=== PATIENT | male | born 1955 | race Caucasian/White ===

== ENCOUNTER 2018-08-25 23:57 | Emergency (ER) | payer MEDICARE ==
[2018-08-26] MEDS: HYDROCODONE/APAP (5/325) TAB PO (01:20)
== END 2018-08-26 03:19 | disposition home or self-care (01) ==
LOC: FTE 23:57
DX: S80.211A Abrasion, right knee, initial encounter (principal); S80.212A Abrasion, left knee, initial encounter; I10 Essential (primary) hypertension; J45.909 Unspecified asthma, uncomplicated; W18.30XA Fall on same level, unspecified, initial encounter; Y92.9 Unspecified place or not applicable; Z21 Asymptomatic human immunodeficiency virus [HIV] infection status; Z79.82 Long term (current) use of aspirin
CPT/HCPCS: 29505; 73562; 99284-25

== ENCOUNTER → 2018-10-24 | Outpatient (CLI) | payer MEDICARE | END | disposition home or self-care (01) | LOC: HKI 11:27 | DX: M25.562 Pain in left knee (principal); M25.561 Pain in right knee; E11.8 Type 2 diabetes mellitus with unspecified complications; N40.0 Benign prostatic hyperplasia without lower urinary tract symptoms; Z88.2 Allergy status to sulfonamides | CPT/HCPCS: G0463 ==